=== PATIENT | male | born 1965 | race Caucasian/White ===

== ENCOUNTER 2017-08-25 16:51 | Emergency (ER) | payer MEDICARE, MEDICAID ==
[~2017-08-25] VITALS: Ht 180.3 cm; Wt 101.3 kg
[2017-08-25] MEDS ORDERED: NAPR275T59 PO (17:09)
[2017-08-25] MEDS ORDERED: METH-38 PO (17:09)
--- NOTE | 2017-08-25 17:11 | PHYS DOC ---
Past History Past Medical History: Hypertension Additional Past Medical Histor: gouty arthritis Smoking: Cigarettes, Greater than 1 pack/day Alcohol Use: None Drug Use: None Adult General Chief Complaint Chief Complaint: BACK PAIN OR INJURY [facility] HPI Patient is a pleasant 51-year-old male with a 12 year history of chronic back pain for which she takes narcotics every day for. He has a history of gouty arthritis and questionable hypertension as well which she's been seeing his primary care doctor for last several years. He admits he takes hydrocodone daily but is been out of his medications for 2 weeks. He said his primary care doctor is going to move away he's been attempting to get a follow-up appointment without success the last several weeks. He denies any new symptoms, no fevers no chills no focal neurologic deficits or UTI symptoms no belly pain no other new symptoms. Patient denies any bowel or bladder incontinence only pain. He says she's been taking his medications until he ran out 2 weeks ago is restricted trying to "" deal with the pain. It is very clear that the patient gets his medication from various providers all over the [facility] area. He came in with a paper printout of all medications he had filled by pharmacy's in the last several years and many of them are narcotics. Review of Systems Review of Systems Constitutional: Denies fever or chills [] Eyes: Denies change in visual acuity, redness, or eye pain [] HENT: Denies nasal congestion or sore throat [] Respiratory: Denies cough or shortness of breath [] Cardiovascular: No additional information not addressed in HPI [] GI: Denies abdominal pain, nausea, vomiting, bloody stools or diarrhea [] : Denies dysuria or hematuria [] Musculoskeletal: Complains of lower back pain. Integument: Denies rash or skin lesions [] Neurologic: Denies headache, focal weakness or sensory changes [] Endocrine: Denies polyuria or polydipsia [] Physical Exam Physical Exam Vital signs recorded on the chart demonstrate hypertension Constitutional: Well developed, well nourished, patient obviously uncomfortable[ ] HENT: Normocephalic, atraumatic, bilateral external ears normal patient is poor dentition with dry mucous membranes Eyes: PERRLA, EOMI, conjunctiva normal, no discharge. [] Neck: Normal range of motion, no tenderness, supple, no stridor. [] Cardiovascular:Heart rate regular rhythm, no murmur [] Lungs & Thorax: Bilateral breath sounds clear to auscultation [] Skin: Warm, dry, no erythema, no rash. No evidence of skin change or rash over the lumbar spinal he claims the pain. Back: Patient has marked tenderness to palpation over the erector spinae muscles and L1-L5 Extremities: No tenderness, no cyanosis, no clubbing, ROM intact, no edema. [] Neurologic: Alert and oriented X 3, normal motor function, normal sensory function, no focal deficits noted. Patient able ambulate without issue. he has a negative straight leg raise bilaterally. Patient has normal sensation to light touch over his lower legs from L1-S2 Psychologic: he seems very preoccupied with pain medications but his judgment is normal and he is mildly anxious EKG EKG [] Radiology/Procedures Radiology/Procedures [] Course & Med Decision Making Course & Med Decision Making Pertinent Labs and Imaging studies reviewed. (See chart for details) CRAFTI Cauda Equina Renal Stone AAA ruptured Fracture Tumor (TB, metastatic disease) Infection UTI, pyelonephritis, epidural abscess. Patient's spine symptoms have stabilized while they have been evaluated in the department and are appropriate for outpatient work up. No evidence of cauda equina, cord compression, infiltrative, or infectious etiology. Patient has no new symptoms to complain of other than missing his medications. I have a concern that this patient is now dependent on narcotics to treat his pain. I will refer him to a pain specialist. I'm concerned with this patient's presentation that they may be addicted to narcotic medications. Their behavior could be described as drug seeking in nature and I'm concerned that if I do not explain to them my concerns and we have a discussion about how to treat this in the future we will continue to see them using these medications and possibly dangerous manners. We talked about overutilization that the medications associated with narcotics to include acetaminophen when taking large doses can cause liver injury that is permanent nature. We discussed a treatment plan and need for follow-up with a paint prep technician to talk about alternatives to narcotic medications. We also talked about possible psychiatric intervention to help him cope with her chronic pain condition. We also discussed possible social work involvement or addiction treatment involvement to help address the possible withdrawal symptoms that may be experiencing which is causing the further use narcotics in this way. I will take the time to provide them addiction clinic information in the follow- up if they choose to accept my help. [] Dragon Disclaimer Dragon Disclaimer This chart was dictated in whole or in part using Voice Recognition software in a busy, high-work load, and often noisy Emergency Department environment. It may contain unintended and wholly unrecognized errors or omissions. Departure Departure: Impression: Primary Impression: Chronic back pain Disposition: 01 HOME, SELF-CARE Condition: STABLE Referrals: PCPWILFRIDO (PCP) JERRICA RIVERA MD Patient Instructions: Basics of Medication Management, Chronic Back Pain, Prescription Medications, Signs of Dependency Additional Instructions: My discharge plan Follow up: In addition patient is asked to followup with their primary doctor, within a week for followup examination and to address patient's ongoing medical conditions. Because patient does not have a regular medical doctor, a local physician Resource Sheet will be provided to establish care primary care. Patient is advised that in the Emergency Department primary complaints are addressed and only in light of known signs and symptoms. Patient should return immediately to the emergency department if new signs and symptoms develop or patient's condition worsens in any way. At time of discharge patient was in stable condition and had verbalized understanding of the discharge instructions. I'm concerned with this patient's presentation that they may be addicted to narcotic medications. Their behavior could be described as drug seeking in nature and I'm concerned that if I do not explain to them my concerns and we have a discussion about how to treat this in the future we will continue to see them using these medications and possibly dangerous manners. We talked about overutilization that the medications associated with narcotics to include acetaminophen when taking large doses can cause liver injury that is permanent nature. We discussed a treatment plan and need for follow-up with a paint prep technician to talk about alternatives to narcotic medications. We also talked about possible psychiatric intervention to help him cope with her chronic pain condition. We also discussed possible social work involvement or addiction treatment involvement to help address the possible withdrawal symptoms that may be experiencing which is causing the further use narcotics in this way. I will take the time to provide them addiction clinic information in the follow- up if they choose to accept my help. Scripts Methocarbamol (ROBAXIN-750) 750 Mg Tablet 1 TAB PO BID, #60 TAB Prov: BRENDA MUJICA MD 08/25/17 Naproxen Sodium (NAPROXEN SODIUM) 275 Mg Tablet 275 MG PO BID for 7 Days, #14 TAB Prov: BRENDA MUJICA MD 08/25/17 BRENDA MUJICA MD Aug 25, 2017 17:10
[2017-08-25] MEDS ORDERED: HYDROmorphone PF 2 MG/ML VIAL IM ONE (17:15)
[2017-08-25] MEDS ORDERED: DEXAMETHASONE SOD PHOS 10 MG/ML VIAL PO ONE (17:15)
[2017-08-25] MEDS ORDERED: KETOROLAC 60 MG/2 ML VIAL. IM ONE (17:15)
[2017-08-25 17:50] VITALS: BP 156/80
== END 2017-08-25 17:50 | disposition home or self-care (01) ==
LOC: ER 17:10
DX: G89.29 Other chronic pain (principal); M54.5 Low back pain; M10.9 Gout, unspecified; I10 Essential (primary) hypertension; F17.210 Nicotine dependence, cigarettes, uncomplicated
CPT/HCPCS: 96372; 99284; J1100; J1170; J1885

== ENCOUNTER 2017-12-28 19:15 | Emergency (ER) | payer MEDICARE, MEDICAID ==
[~2017-12-28] VITALS: Ht 180.3 cm; Wt 105.2 kg
[~2017-12-28 19:15] MED LIST: METH-38 PO; NAPR275T59 PO
[2017-12-28 19:32] VITALS: BP 144/90
--- NOTE | 2017-12-28 20:07 | PHYS DOC ---
General Chief Complaint: FACE PROBLEM Stated Complaint: FACIAL PROBLEM Time Seen by MD: 20:06 Source: patient Exam Limitations: no limitations Problems: History of Present Illness Initial Comments Patient is a 52-year-old male who comes to the ED complaining of lower lip pain. Patient states for the past 3 days or so he's had pain at the anterior aspect of his anterior lower lip. Pain is worse with palpation and certain foods, he denies any trauma and denies any gum or dental pain. He has history of throat cancer and is anxious that it may be a recurrence, no fever chills or body aches no pre-arrival treatment vital signs are stable on arrival. Timing/Duration: gradual, other Severity: moderate Location: facial Prearrival Treatment: no prearrival treatment Modifying Factors: improves with other Associated Symptoms: other Allergies: Coded Allergies: No Known Drug Allergies (Unverified , 08/25/17) Past Medical History Medical History: other (throat cancer, hyperlipidemia, hypertension, gout) Surgical History: noncontributory Social History Smoker: cigarettes Alcohol: none Drugs: none Constitutional: denies chills, denies fever Ears: denies dizziness, denies tinnitus Nose: denies clots, denies congestion, denies epistaxis Mouth: see HPI, denies swelling, denies clear discharge, denies purulent discharge Throat: denies pain, denies swelling, denies neck stiffness, denies painful swallowing, denies difficulty with fluids Respiratory: denies cough, denies shortness of breath Physical Exam General Appearance: WD/WN, no apparent distress Nose: normal inspection Neck: other (lower incisors are absent, aphthous ulcers noted at the inner aspect of the anterior lower lips no discharge or open wounds no soft tissue or gingival swelling no bony tenderness) Cardiovascular/Respiratory: normal peripheral pulses, normal breath sounds, no respiratory distress Neurologic/Psychiatric: [employer] technical lead senior developer II-XII nml as tested, oriented x 3 Orders, Labs, Meds Patient reassured, I discussed supportive and [id number] measures for care. Recommend discontinue tobacco use. Departure Time of Disposition: 20:06 Disposition: 01 HOME, SELF-CARE Diagnosis: aphthous ulcers Condition: GOOD Patient Instructions: Canker Sores, Brief Additional Instructions: Please review the patient education materials given by ED staff. [id number] Orajel or other similar numbing medication. Listerine gargles 3 times daily after brushing and flossing her teeth. Follow-up with your doctor in 10-14 days if not better. Return to ED with new or changing symptoms. BRANDON JAY DO Dec 28, 2017 20:07
== END 2017-12-28 20:20 | disposition home or self-care (01) ==
LOC: ER 19:15
DX: K12.0 Recurrent oral aphthae (principal); E78.5 Hyperlipidemia, unspecified; I10 Essential (primary) hypertension; M10.9 Gout, unspecified; F17.210 Nicotine dependence, cigarettes, uncomplicated
CPT/HCPCS: 99281